=== PATIENT | female | born 1955 | race Caucasian/White ===

== ENCOUNTER 2021-06-05 10:15 | Outpatient (REF) | payer OTHER, SELFPAY ==
[2021-06-05 12:16] LABS: Erythrocyte Sedimentation Rate 25 MM/HR (0-20)
[2021-06-05 12:21] LABS: Syphilis Screen Nonreactive (Nonreactive)
[2021-06-05 12:31] LABS: Folate 11.9 ng/mL (> or = 4.0); Vitamin B12 431 pg/mL (200-900)
[2021-06-07 05:11] LABS: Lyme Abs Screen <0.90 index
[2021-06-07 12:36] LABS: Anti Nuclear Antibody Screen NEGATIVE (NEGATIVE)
== END 2021-06-05 10:16 | disposition home or self-care (01) ==
LOC: HO.LAB 10:15
PROVIDERS: PCP Internal Medicine; Visit Provider Psychiatry & Neurology Neurology
DX: G62.9 Polyneuropathy, unspecified (principal)
CPT/HCPCS: 82607; 82746; 85652; 86038; 86039; 86335; 86617; 86618; 86780

== ENCOUNTER 2021-12-18 10:30 | Outpatient (REF) | payer OTHER, SELFPAY ==
[2021-12-18 12:26] LABS: Erythrocyte Sedimentation Rate 17 MM/HR (0-20)
== END 2021-12-18 10:31 | disposition home or self-care (01) ==
LOC: HO.LAB 10:30
PROVIDERS: PCP Internal Medicine; Visit Provider Psychiatry & Neurology Neurology
DX: G62.9 Polyneuropathy, unspecified (principal)
CPT/HCPCS: 36415; 82550; 85652

== ENCOUNTER 2022-05-07 17:40 | Outpatient (REF) | payer OTHER, SELFPAY ==
--- NOTE | ~2022-05-07 | MR_ITS ---
EXAMINATION: MR BRAIN WITHOUT CONTRAST CLINICAL INFORMATION: White matter changes. COMPARISON: Brain MRI from 01/12/2018. TECHNIQUE: MRI of the brain was obtained using routine sequences without contrast. FINDINGS: No focal restricted diffusion is demonstrated to suggest acute or subacute cerebral ischemia. No evidence of acute or chronic hemorrhagic products on heme-sensitive imaging. Moderate nonspecific scattered periventricular, deep white matter, and brainstem T2 FLAIR hyperintensities (similar in distribution and degree compared to 2018). Proportional prominence of the ventricles and sulcal spaces without evidence of obstructive hydrocephalus. No abnormal mass effect. No midline shift. Normal appearance of the pituitary gland. Normal positioning of the cerebellar tonsils. Normal arterial and venous vascular flow voids are present. Normal, homogeneous marrow signal. Mild mucosal thickening of the paranasal sinuses. Moderate leftward nasal septal deviation. No signal abnormalities within the mastoids. MR/MR head/brain wo con IMPRESSION: 1. No acute intracranial abnormalities. 2. Moderate nonspecific white matter changes appear similar in distribution and degree compared to 2018.
== END 2022-05-07 17:41 | disposition home or self-care (01) ==
LOC: HO.MRI 17:40
PROVIDERS: Visit Provider Psychiatry & Neurology Neurology
DX: G93.49 Other encephalopathy (principal)
CPT/HCPCS: 70551

== ENCOUNTER 2025-01-09 14:34 | Outpatient (AMB) | payer MEDICARE, SELFPAY ==
--- OUTSIDE RECORDS SUMMARY | 2024-08-12 06:30 | XMS_ITS ---
Author Organization [facility], [place] Address [address] [place] [address] Care Team Providers Care Cupola Charger Name Role Phone Lukas Bhatt Unavailable [phone] REASON FOR VISIT Follow-up Appt Encounters Encounter Location Date Provider Diagnosis [facility], [address] [place] [phone] 08/12/2024 Lukas Bhatt Plan Of Treatment Next Appt Details Provider Name:Clare Oates, 01/30/2025 01:30:00 PM, [address] [place] [address], [address], [place], [address], [phone] Progress Notes * ELISEO NAJERADOB:[birth year] (69 yo F)Acc No.[id number]:08/12/2024 Progress Notes Patient: ELISEO MOREL Provider: Kian COSME :1955 A ge:68 Y S ex:Female Date:08/12/2024 [id number] Subjective: * Chief Complaints: * F ollow-up Appt * Ocular Surgical History: Objective: Vision Examination: * Electronic signature of Agustin Bhatt PA-C on 01/09/2025 at 04:16 PM EDT Sign off status: Pending * Provider: Kian COSME Date: 08/12/2024 Generated for Printi ng/Faxing/eTransmitting on: 0 01/09/2025 04:16 PM EDT
--- OUTSIDE RECORDS SUMMARY | 2024-09-30 09:00 | XMS_ITS ---
Author Organization [facility], [place] Address [address] [address] [place] [address] Care Team Providers Care Harpoon Engagement Planning Operator Name Role Phone Lukas Bhatt Unavailable [phone] REASON FOR VISIT Follow-up Appt Encounters Encounter Location Date Provider Diagnosis [facility], [address] [place] [address] 09/30/2024 Lukas Bhatt Plan Of Treatment Next Appt Details Provider Name:Clare Oates, 01/30/2025 01:30:00 PM, [address] [place] [address], [address], [place], [address], [phone] Progress Notes * ELISEO NAJERADOB:[birth year] (69 yo F)Acc No.[id number]:09/30/2024 Progress Notes Patient: ELISEO MOREL Provider: Kian COSME :1955 A ge:68 Y S ex:Female Date:09/30/2024 [facility] Subjective: * Chief Complaints: * F ollow-up Appt * Ocular Surgical History: Objective: Vision Examination: * Electronic signature of Agustin Bhatt PA-C on 01/09/2025 at 04:16 PM EDT Sign off status: Pending * Provider: Kian COSME Date: 0 09/30/2024 Generated for Printi ng/Faxing/eTransmitting on: 0 01/09/2025 04:16 PM EDT
--- OUTSIDE RECORDS SUMMARY | 2024-11-28 12:30 | XMS_ITS ---
Author Organization [facility], [place] Address [address] [place] [address] Care Team Providers Care Social Media Strategist Name Role Phone Clare Oates Unavailable [phone] REASON FOR VISIT Tele visit medication management Medications Medication SIG (Take, Route, Frequency, Duration) Notes Start Date End Date Status Omeprazole 20 MG Capsule Delayed Release TAKE 1 CAPSULE BY MOUTH DAILY; Duration: 90 Active Encounters Encounter Location Date Provider Diagnosis [facility], [address] [place] [phone] 11/28/2024 Clare Oates Plan Of Treatment Next Appt Details Provider Name:Clare Oates, 01/30/2025 01:30:00 PM, [address] [place] [address], [address] [facility], [place], [address], [phone] Progress Notes * ELISEO NAJERADOB:[birth year] (69 yo F)Acc No.[id number]:11/28/2024 Patient: ELISEO MOREL Provider: Jory Oates :1955 A ge:68 Y S ex:Female Date:11/28/2024 [facility] Subjective: * Chief Complaints: * T anna visit medication management * Medications: T akingOmeprazole 20 MG Capsule Delayed Release TAKE 1 CAPSULE BY MOUTH DAILY Taking Omeprazole 20 MG Capsule Delayed Release TAKE 1 CAPSULE BY MOUTH DAILY * Electronic signature of Angelito Иван on 01/09/2025 at 04:16 PM EDT Sign off status: Pending * Provider: Jory Oates Date: 0 11/28/2024 Generated for Bridget osorio/Jacque/Safia on: 0 01/09/2025 04:16 PM EDT
--- NOTE | 2025-01-09 14:43 | A.OFFVIS_ITS ---
Intake Visit Reasons: 6m Tarsal Tunnel Syndrome Allergies Penicillins Allergy (Unknown, Verified 01/02/25 09:30) Unknown HPI Comments Details: 69 yo woman with HTN, abnromal MRI brain in 2018 revealing white matter lesions (?MVD vs demylination). 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 She is presenting with the need for management of diarrhea and the evaluation of restarting Duloxetine. The patient recounts that following commencement of Duloxetine for pain relief, she experienced worsening diarrhea during a trip in November, which led to the discontinuation of the medication after consulting with her primary care provider. She observed an improvement in her symptoms approximately one week after stopping Duloxetine. The patient inquired about alternatives to manage diarrhea, should she resume taking Duloxetine since it was effective for her pain. She tried Imodium during a previous hospital visit, as well as dicyclomine, a medication she had used for her past diagnosis of IBS, but which she currently does not take as IBS was ruled out. She mentioned her concern over weight changes possibly related to the medication. [facility] Medical History (Updated 01/09/25 @ 14:45 by Mark Zamora MD) Multifactorial gait disorder White matter disease Cerebral microvascular disease Facet arthropathy Degenerative disc disease, lumbar Obesity Peripheral neuropathy Tarsal tunnel syndrome, bilateral Review of Systems Const Details: - Gastrointestinal: Reports diarrhea associated with Duloxetine use; Denies current IBS symptoms - Weight: Reports initial weight loss during diarrhea episode; subsequent weight gain after Duloxetine discontinuation - Musculoskeletal: Reports effective pain relief from Duloxetine; no other current symptoms reported Physical Exam Neuro Other: Mental Status: Alert and oriented to person, place, and time. Normal attention. Normal sponta neous speech, fluency, and comprehension. No obvious issues with mood and memory. Affect is appropriate. Cranial Nerves: CN II: Visual badillo full to confrontation, visual acuity intact. CN III, IV, : Pupils equal, round, reactive to light and accommodation. Extraocular movements are normal. CN V: Facial sensation is normal. CN VII: Facial movements symmetrical. CN VIII: Hearing intact to bedside conversation is normal. CN IX, X: Palate elevates symmetrically. CN XI: Shoulder shrug and head turn symmetrical. CN XII: Tongue midline without atrophy or fasciculations. Extrapyramidal: Full facial expressions and blinking. No rigidity. Movements are appropriate with no tremor or abnormality. Speech: Normal; no dysarthria or tremor. Assessment & Plan Assessment & Plan (1) Neuropathic pain: Comment: NCV/EMG LE in off in Feb 2024: Mild axonal sensory and motor peripheral neuropathy. NCV/EMG RTLE No significant abnormality noted in this study. 01/01/22. EMG/NCS UEs at [facility] in Feb 2021: mild b/l median neuropathy across CT, mild bilateral ulnar neuropathy across elbow (my interpretation of his data) EMG/NCS R LE at [facility] in Feb 2021: mild axonal SM PN (my interpretation of his data) EMG/NCS at [facility] in Jan 2021: chronic b/l lower lumbar radiculopathy, mild axonal SM PN, b/l distal tibial neuropathy XR LS spine at [facility] in 2019: DJD, L 4/5 facet arthropathy MRI brain WO at [facility] in 2018: mod b/l WM lesions, ?ischemic, ?demyelinating. Code(s): M79.2 - Neuralgia and neuritis, unspecified Category: Medical Plan Impression: Neuropathic pain with underlying IBS Rec: a: Continue duloxetine 20mg bid, it is helping with pain b: May take dicyclomine for IBS Coding Level of Care Code Est Pt Level 4 (51489) Diagnoses Neuropathic pain M79.2
--- OUTSIDE RECORDS SUMMARY | 2025-01-09 16:16 | XMS_ITS | Patient Health Record ---
Author Organization [facility], [place] Address [address] [place] [address] Care Team Providers Care Fiber Optics Supervisor Name Role Phone Lukas Bhatt Unavailable [phone] Migration, Provider Unavailable Unavailable Clare Oates Unavailable [phone] Reason For Referral No Information Medications Medication SIG (Take, Route, Frequency, Duration) Notes Start Date End Date Status Omeprazole 20 MG Capsule Delayed Release TAKE 1 CAPSULE BY MOUTH DAILY; Duration: 90 Active Encounters Encounter Location Date Provider Diagnosis [facility], [address] [address] 01/11/2024 Provider Migration [facility], [address] [address] 01/25/2024 Provider Migration [facility], [address] [address] 02/29/2024 Provider Migration [facility], [address] [address] 03/07/2024 Provider Migration [facility], [address] [address] 04/12/2024 Provider Migration [facility], [address] [address] 05/19/2024 Lukas Bhatt [facility], [address] [address] 07/07/2024 Provider Migration [facility], [address] [address] 07/07/2024 Lukas Bhatt [facility] [place] [address] [address] 08/12/2024 Lukas Bhatt [facility], [address] [address] 09/30/2024 Lukas Bhatt [facility] [place] [address] [place] [address] 11/28/2024 Clare Oates Plan Of Treatment Next Appt Details Provider Name:Clare Oates, 01/30/2025 01:30:00 PM, [address], [address], [place], [address], [phone] Insurance Providers Payer Name Payer Address Payer Phone Subscriber Number Group Number Insured Name Patient Relationship to Insured Coverage Start Date Coverage End Date [facility] [address] [place] [id number] ELISEO NAJERA Self - patient is the insured
--- OUTSIDE RECORDS SUMMARY | 2025-01-09 16:16 | XMS_ITS ---
Author Name [facility] Organization Unknown Problems Problem Status Onset Date Problem Type Date of Resolution Source Encounter for screening mammogram for breast cancer active EncounterDiagnosisAct CT_TH SFRAN Encounters Encounter Type Encounter Reason Primary Diagnosis Location Date Inpatient Unspecified atrial fibrillation Unspecified atrial fibrillation [facility] 02/26/2023 Care Team Organization Name Specialty Phone Email Start Date End Da te [facility] 3 08/23/2024 [facility]
--- OUTSIDE RECORDS SUMMARY | 2025-01-09 16:16 | XMS_ITS | Clinical Summary ---
Author Organization [facility] Address [address] [place] [address] Care Team Providers Care Stage Builder Name Role Phone Verónica Person NP Primary Care Provider [phone] Allergies Active Allergy Reactions Criticality Noted Date Comments Penicillins Swelling 02/12/2023 Tongue and throat swelling Medications Medication Sig Dispensed Refills Start Date End Date Status amLODIPine (NORVASC) tablet 5 mg Take 1 tablet (5 mg total) by mouth daily. 0 Active metoprolol succinate (TOPROL-XL) 24 hr tablet 50 mg Take 1.5 tablets (75 mg total) by mouth daily. 0 Active omeprazole (PriLOSEC) 20 MG capsule Take 1 capsule (20 mg total) by mouth daily. 0 Active Albuterol Sulfate (PROAIR HFA IN) Inhale into the lungs as needed. 0 Active montelukast (SINGULAIR) 10 MG tablet Take 1 tablet (10 mg total) by mouth every night at bedtime. 0 Active cetirizine (ZyrTEC) 10 MG tablet Take 1 tablet (10 mg total) by mouth daily. Take one tablet once a day 0 Active aspirin EC 81 MG EC tablet Take 1 tablet (81 mg total) by mouth daily. 30 tablet 1 02/27/2023 Active clopidogrel (PLAVIX) 75 MG tablet Take 1 tablet (75 mg total) by mouth daily. 30 tablet 1 02/27/2023 Active Active Problems Problem Noted Date Diagnosed Date Longstanding persistent atrial fibrillation 02/15 Atrial fibrillation 02/26/2023 Social History Tobacco Use Types Packs/Day Years Used Date Smoking Tobacco: Former Cigarettes Smokeless Tobacco: Never Tobacco Cessation:Counseling Given: Not Answered Alcohol Use Standard Drinks/Week Comments Yes 0 (1 standard drink = 0.6 oz pur e alcohol) Sex and Gender Information Value Date Recorded Sex Assigned at Female 01/28/2023 11:11 AM EDT Gender Identity Not on file Sexual Orientation Not on file Job Start Date Occupation Industry Not on file Not on file Not on file Last Filed Vital Signs Vital Sign Reading Time Taken Comments Blood Pressure 121/71 02/27/2023 12:50 PM EDT Pulse 79 02/27/2023 12:50 PM EDT Temperature 36.8 C (98.3 F) 02/27/2023 12:50 PM EDT Respiratory Rate 18 02/27/2023 12:50 PM EDT Oxygen Saturation 95% 02/27/2023 12:50 PM EDT Inhaled Oxygen Concentration - - Weight 85.3 kg (188 lb 1 oz) 02/26/2023 9:56 AM EDT Height 160 cm (5' 3 ) 02/26/2023 9:56 AM EDT Body Mass Index 33.31 02/26/2023 9:56 AM EDT Plan of Treatment Health Maintenance Due Date Last Done Comments Hepatitis C Screening 1955 COVID-19 Vaccine (#1) 06/12/1958 Depression Screening 1969 BMI Counseling 12/11/1975 Preventative Health Evaluation 12/11/1975 DTap / Tdap / Td (1 - Tdap) 1976 Colon Cancer Screening (Colonoscopy) 2002 Breast Cancer Screening (Mammogram) 12/11/2007 Shingrix-Zoster Vaccine (1 of 2) 12/11/2007 Fall Risk Assessment 2022 Osteoporosis Screening (DEXA Scan) 2022 Pneumococcal Vaccine (2 of 2 - PCV) 2022 08/12/2013 Influenza Vaccine (#1) 2025 RSV Adult > 60+ Yrs or Pregn ant (1 - 1-dose 75+ series) 2032 Hepatitis B Vaccines Aged Out No long er eligible based on patient's age to complete this topic RSV Ped < 20 months Aged Out No longe r eligible based on patient's age to complete this topic Medical Devices Implanted Type Area Pierce And Shave Press Operator Device Identifier Shelf Expiration Date Model / Serial / Lot Device Clsdamien Watchman Flx Lakshmi 24mm Bsci-Prnt [id number] - [id number] Implanted:Qty: 1 on 02/26/2023 by Arun Roberson MD at [facility] Right: Lindsay Signpost 09/22/2024 [id number] / [id number] / Advance Directives For more information, please contact: [phone] Latest Code Status on File Code Status Date Activated Date Inactivated Comments Full Code 02/26/2023 11:46 AM 02/27/2023 8:20 PM Th is code status was ascertained in the following way: discussion with patient . Care Teams Stage Builder Relationship Specialty Start Date End Date Verónica Person NP [address] [facility] [place] [address] PCP - General Family Medicine 02/13/23
--- OUTSIDE RECORDS SUMMARY | 2025-01-09 16:16 | XMS_ITS | Clinical Summary ---
Author Organization [facility] Address [address] [place] [address] Phone Care Team Providers [employer] Name Role Phone Satinder Bateman MD Primary Care Provider [phone] Allergies Active Allergy Reactions Criticality Noted Date Comments Clopidogrel Other 05/27/2023 Malaise Penicillins Rash 09/12/2024 Medications dicyclomine (BENTYL) 10 mg capsuleIndicati ons:Lower abdominal pain Take 1 capsule (10 mg total) by mouth 3 (three) times a day before meals. 90 each 11 5 10/06/19 26 Active Additional Information Patient not taking.Reported on 12/14/2024 albuterol HFA (PROAIR HFA ; PROVENTIL HFA ; VENTOLIN HFA) 90 mcg/actuation inhaler USE 2 INHALATIONS BY MOUTH EVERY 4 HOURS NEEDED FOR SHORTNESS OF BREATH 3 Active amLODIPine (NORVASC) 5 mg tablet Take 1 tablet (5 mg total) by mouth 1 (one) time each day. 4 Active apixaban (Eliquis) 5 mg tablet Take 1 tablet (5 mg total) by mouth 2 (two) times a day. 3 Active aspirin 81 mg EC tablet Take 1 tablet (81 mg total) by mouth 1 (one) time each day. 3 Active cetirizine (ZyrTEC) 10 mg chewable tablet Chew 1 tablet (10 mg total) 1 (one) time each day. 3 Active cyclobenzaprine (FLEXERIL) 10 mg tablet TAKE 1 TABLET BY MOUTH 3 TIMES A DAY NEEDED FOR PAIN. MAY CAUSE DROWSINESS.DON'T DRIVE 5 Active ciprofloxacin (CIPRO) 500 mg tablet Take 1 tablet (500 mg total) by mouth 2 (two) times a day. for 7 days 5 Active DULoxetine (CYMBALTA) [address] capsule Take 1 capsule (20 mg total) by mouth 2 (two) times a day. 4 Active metoprolol tartrate (LOPRESSOR) 50 mg tablet 5 Active pravastatin (PRAVACHOL) 20 mg tablet 5 Active rosuvastatin (CRESTOR) 10 mg tablet Take 1 tablet (10 mg total) by mouth every other day. 4 Active omeprazole (PriLOSEC) [address] capsule Take 1 capsule (20 mg total) by mouth 1 (one) time each day. 4 Active montelukast (SINGULAIR) 10 mg tablet Take 1 tablet (10 mg total) by mouth. 4 Active metroNIDAZOLE (FLAGYL) 500 mg tablet Take 1 tablet (500 mg total) by mouth 2 (two) times a day. for 7 days 5 Active metoprolol succinate (TOPROL-XL) 50 mg 24 hr tablet Take 1.5 tablets (75 mg total) by mouth. 3 Active Active Problems Problem Noted Date Diagnosed Date Lung cancer ([facility] V24, [facility] V28) 5 Complex regional pain syndrome I 11/17/2024 History of pacemaker 05/26/2023 Subarachnoid hemorrhage ([facility] V24, [facility] V2 8) 05/26/2023 Longstanding persistent atri al fibrillation ([facility] V24, [facility] V28) 02/26/2023 Other chest pain 01/20/2023 Overview (11/17/2024): Last Assessment & Plan: As a note she did have this episode of chest discomfort her resting ECG is abnormal. I am going to schedule for a nuclear stress test. In the meantime I did tell her she had any chest discomfort that lasted over 15 minutes to call 911. Snoring 01/20/2023 Overview (11/17/2024): Last Assessment & Plan: She does snore and she could have sleep apnea and I spoke to her about this and she is agreeable to a sleep test. Arrhythmia 01/16/2023 Overview (11/17/2024): Last Assessment & Plan: 67-year-old female with persistent atrial fibrillation treated with rate control. 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 CHADSVASC score is a 3 and she is a candidate for watchman. I went through the procedure, its rationale, potential complications and need for monitoring with transesophageal echocardiogram post procedure. She understands that she would need to be on dual antiplatelet therapy for period of up to 6 months. I did discuss the small risk of venous access complications, cardiac perforation tamponade, device embolization and potential need for open cardiac rescue showed to be a perforation. She understands that there are needs to be a transesophageal echocardiogram at the time of the procedure and 6 weeks after to assess for leaks and device stability and rule out device related thrombus. She is in agreement to proceed. Atrial fibrillation (CMS/HCC V24, CMS/HCC V28) 0 01/16/2023 Overview (11/17/2024): Last Assessment & Plan: As a noted this patient does have atrial fibrillation. This was first noted in September 2022. She had not seen a physician 2020. Therefore we do not know when the atrial fibrillation started. She is completely asymptomatic. At this time she is having no symptoms. As far as an etiology she did have an echocardiogram in 2022. This demonstrated that the left ventricular chamber size and function were normal. The LVEF was 55 to 60%. The left and right atrium mildly dilated. There was mild mitral regurgitation mild to moderate tricuspid regurgitation with estimated PA pressure 38 mmHg. She does snore and she could also have sleep apnea as a contributing factor. At this time the rate is controlled. At this point given the fact that she is completely asymptomatic we do not know when this Started I do not see an indication for a cardioversion. I did discuss some, but all possible risk of atrial fibrillation including an embolic event which could lead to a stroke. Her CHADS2 vascular score is 3. Ideally I think she should be on anticoagulation because of this however as I know she does have multiple falls. I have asked her where she thought risk and she says she does not know if she would fall the next 5 minutes to an hour. As such I get concerned about given her anticoagulation because of this. However I also do not want her to have an embolic event I spoke to her about a Watchman procedure. I did give her a pamphlet and she is agreeable to this. I am going to see if we can get her a appointment with one of the systems integration engineer. Allergic rhinitis 09/15/2017 Hyperlipidemia 09/15/2017 Hypertension 09/15/2017 Asthma 09/23/2016 Encounters Date Type Department Care Team Description 12/14/2024 11:00 AM EDT Office Visit Gastroenterology - [address] [facility] [address] [place] [phone] Jeimy Stewart PA Irritable bowel syndrome without diarrhea (Primary Dx) from Last 3 Months Surgical History Surgery Date Site/Laterality Comments COLONOSCOPY 11/10/2023 COLONOSCOPY 11/22/2019 FLEXIBLE SIGMOIDOSCOPY 12/24/2021 COLONOSCOPY 10/15/2016 SS x 3 LUNG REMOVAL, PARTIAL Right TOTAL ABDOMINAL HYSTERECTOMY W/ BILATERAL SALPINGOOPHORECTOMY ESOPHAGOGASTRODUODENOSCOPY 01/21/2018 COLONOSCOPY 07/04/2011 TA x 1 Medical History Medical History Date Comments Hyperlipidemia 09/15/2017 DX:Hyperlipidemi a Asthma 09/23/2016 DX:Asthma History of lung cancer 09/15/2017 DX:Histor y of lung cancer Allergic rhinitis 09/15/2017 DX:Allergic rh initis Hypertension 09/15/2017 DX:Hypertension Colon polyp Diverticulitis Family History Medical History Relation Name Comments Breast cancer Cousin Coronary artery disease Father diab etes, HTN, stroke Stroke Father COPD Mother lung cancer Lung cancer Mother Coronary artery disease Sister diab etes Colon cancer Neg Hx Colon polyps Neg Hx Relation Name Status Comments Cousin Alive Father Mother Sister Social History Tobacco Use Types Packs/Day Years Used Date Smoking Tobacco: Former Cigarettes Smokeless Tobacco: Former Quit: 05/18/1995 Alcohol Use Standard Drinks/Week Comments Yes 0 (1 standard drink = 0.6 oz pur e alcohol) rare Comments No Sex and Gender Information Value Date Recorded Sex Assigned at Female 04/29/2024 7:28 PM EST Legal Sex Female 4:14 AM EST Gender Identity Female 04/29/2024 7:28 PM EST Sexual Orientation Not on file Obstetrics History Last Filed Vital Signs Vital Sign Reading Time Taken Comments Blood Pressure 131/74 09/12/2024 11:14 PM EDT Pulse 60 09/12/2024 11:14 PM EDT Temperature 36.7 C (98 F) 09/12/2024 11:14 PM EDT Respiratory Rate 16 09/12/2024 11:14 PM EDT Oxygen Saturation 98% 09/12/2024 11:14 PM EDT Inhaled Oxygen Concentration - - Weight 85.7 kg (189 lb) 12/14/2024 11:00 AM EDT Height 160 cm (5' 3 ) 12/14/2024 11:00 AM EDT Body Mass Index 33.48 12/14/2024 11:00 AM EDT Plan of Treatment Health Maintenance Due Date Last Done Comments DTaP,Tdap,and Td Vaccines (1 - Tdap) 1974 Pneumococcal Vaccine: 50+ Years (1 of 2 - PCV) 1974 Colorectal Cancer Screening: Colonoscopy 04/20/2022 Hepatitis C Screening 04/20/2022 Medicare Annual Wellness Visit 04/20/2022 Social Influencers of Health Screening 04/20/2022 Falls Risk Assessment 2022 Depression Screening 05/18/2024 COVID-19 Vaccine (8 - Mixed Product risk season) 2024 03/15/2024, 05/02/2023, 03/14/2022, Additional history exists Influenza Vaccine (#1) 2025 , 05/02/2023, 03/14/2022, Additional history exists Hypertension/CHF/CAD Annual BMP Blood Test 09/12/2025 09/12/2024, 05/19/2024 Breast Cancer Screening 05/02/2026 05/02/20 24, 04/30/2023, 04/17/2022, Additional history exists Cholesterol Screening (Lipid Panel) 05/19/2029 05/19/2024 Osteoporosis Screening (Bone Density Screening) 04/30/2033 04/30/2023 RSV Immunization Adult Patients Completed 05/09/2023 Zoster Vaccines Completed 06/06/2023, 03/08/2021 HIB Vaccines Aged Out No longer eligi ble based on patient's age to complete this topic HPV Vaccines Aged Out No longer eligi ble based on patient's age to complete this topic Hepatitis A Vaccines Aged Out No long er eligible based on patient's age to complete this topic Hepatitis B Vaccines Aged Out No long er eligible based on patient's age to complete this topic IPV Vaccines Aged Out No longer eligi ble based on patient's age to complete this topic MMR Vaccines Aged Out No longer eligi ble based on patient's age to complete this topic Meningococcal ACWY Vaccine Aged Out N o longer eligible based on patient's age to complete this topic Meningococcal B Vaccine Aged Out No l onger eligible based on patient's age to complete this topic RSV Immunization Patients Under 20 months Aged Out No longer eligible based on patient's age to complete this topic Varicella Vaccines Aged Out No longer eligible based on patient's age to complete this topic Medical Devices Implanted Type [employer] Device Identifier Shelf Expiration Date Model / Serial / Lot Device Clsur Watchman Flx Lakshmi 24mm Bsci-Prnt [id number] - [id number] Implanted:Qty: 1 on 02/26/2023 by Arun Roberson MD Right: [email or web address] 09/22/2024 [id number] / [id number] / Procedures Procedure Name Priority Date/Time Associated Diagnosis Comments COMPREHENSIVE METABOLIC PANEL STAT 09/12/2024 7:30 PM EDT LIPID PANEL WITH REFLEX TO DIRECT LDL Routine 05/19/2024 12:00 AM EST Vitamin D deficiency, unspecified Essential (primary) hypertension Hyperlipidemia, unspecified Encounter for screening for diabetes mellitus MG MAMMO DIGITAL SCREENING W OLVIN BILAT Routine 05/02/2024 11:23 AM EST Encounter for screening mammogram for breast cancer PREMA DEXA AXIAL SKELETON Routine 04/30/2023 7:46 AM EST Other specified disorders of bone density and structure, other site from Last 3 Months or Most Recently Relevant to Health Maintenance Results * Comprehensive metabolic panel (09/12/2024 7:30 PM EDT) Sodium 138 133 - 145 mmol/L LAB CHEMISTRY METHOD 09/12/2024 8:[address] [facility] Potassium 3.7 3.5 - 5.5 mmol/L LAB CHEMISTRY METHOD 09/12/2024 8:[address] [facility] Chloride 106 96 - 110 mmol/L LAB CHEMISTRY METHOD 09/12/2024 8:[address] [facility] CO2 26 21 - 32 mmol/L LAB CHEMISTRY METHOD 09/12/2024 8:[address] [facility] Anion Gap 6 3 - 11 LAB CHEMISTRY METHOD 09/12/2024 8:[address] [facility] Glucose 95 70 - 100 mg/dL LAB CHEMISTRY METHOD 09/12/2024 8:[address] [facility] BUN 13 5 - 25 mg/dL LAB CHEMISTRY METHOD 09/12/2024 8:[address] [facility] Creatinine 0.84 0.50 - 1.10 mg/dL LAB CHEMISTRY METHOD 09/12/2024 8:[address] [facility] eGFR 77 >=60 mL/min/1. 73m2 LAB CHEMISTRY METHOD 09/12/2024 8:[address] [facility] Comment:Calculation based on the Chronic Kidney Disease Epidemiology Collaboration (CKD-EPI) equation refit without adjustment for race. BUN/Creatinine Ratio 15.5 LAB CHEMISTRY METHOD 09/12/2024 8:[address] [facility] Calcium 9.0 8.5 - 10.5 mg/dL LAB CHEMISTRY METHOD 09/12/2024 8:[address] [facility] AST (SGOT) 17 10 - 42 unit/L LAB CHEMISTRY METHOD 09/12/2024 8:[address] [facility] ALT (SGPT) 24 10 - 60 unit/L LAB CHEMISTRY METHOD 09/12/2024 8:[address] [facility] Alkaline Phosphatase 90 42 - 121 unit/L LAB CHEMISTRY METHOD 09/12/2024 8:37 PM EDT [facility] Total Protein 6.8 6.0 - 8.0 g/dL LAB CHEMISTRY METHOD 09/12/2024 8:37 PM EDT [facility] Albumin 3.6 3.2 - 5.0 g/dL LAB CHEMISTRY METHOD 09/12/2024 8:37 PM EDT [facility] Total Bilirubin 0.6 0.0 - 1.4 mg/dL LAB CHEMISTRY METHOD 09/12/2024 8:37 PM EDT [facility] Blood Venous blood specimen / Unknown Venipuncture / Unknown 09/12/2024 7:30 PM EDT 09/12/2024 7:56 PM EDT Chris Batista MD LAB BLOOD ORDERABLES Final Result [facility] [address] [place] [address], [place] [phone] * (ABNORMAL) Lipid panel with reflex to direct LDL (05/19/2024 12:00 AM EST) Cholesterol 247(H) 0 - 200 mg/dL LAB CHEMISTRY METHOD 05/19/2024 8:35 PM EST [facility] Triglycerides 326(H) 0 - 150 mg/dL LAB CHEMISTRY METHOD 05/19/2024 8:35 PM EST [facility] HDL 48 >=40 mg/dL LAB CHEMISTRY METHOD 05/19/2024 8:35 PM EST [facility] LDL Calculated 134(H) 0 - 100 mg/dL LAB CHEMISTRY METHOD 05/19/2024 8:35 PM EST [facility] VLDL Cholesterol [place] 65.2 mg/dL LAB CHEMISTRY METHOD 05/19/2024 8:35 PM EST [facility] Non HDL Chol. (LDL+VLDL) 199(H) <145 mg/dL LAB CHEMISTRY METHOD 05/19/2024 8:35 PM EST [facility] Chol/HDL Ratio 5.1(H) 0.0 - 4.4 LAB CHEMISTRY METHOD 05/19/2024 8:35 PM EST [facility] Blood Venous blood specimen / Unknown 05/19/2024 05/19/2024 6:35 PM EST us Lukas COSME LAB BLOOD ORDERABLES Final Res ult [facility] [address] [place] [address], [place] [phone] * MG Mammo Digital Screening w Olvin bilat (05/02/2024 11:23 AM EST) Anatomical Region Laterality Modality Breast Bilateral Mammography 05/04/2024 12:1 3 PM EST Impressions 05/04/2024 12:16 PM EST Benign. BI-RADS CATEGORY: 1 - NEGATIVE RECOMMENDATION: Screening bilateral mammogram is recommended in 1 year. Mammo Location: [facility], [address] [place], [place], [address], . -------- FINAL REPORT -------- Dictated By: BOGDAN GARRISON Dictated Date: 05/04/2024 12:13 ET Assigned Physician: BOGDAN GARRISON Reviewed and Electronically Signed By: BOGDAN GARRISON Signed Date: 05/04/2024 12:16 ET Workstation ID: [id number] Transcribed By: Self Edit Transcribed Date: 05/04/2024 12:13 ET Narrative 05/04/2024 12:16 PM EST CLINICAL: 68 years old, Female, routine annual exam. COMPARISON: 04/29/2023 through 03/20/2020 TECHNIQUE: Bilateral MLO and CC views were obtained digitally with 3-D mammogram (digital breast tomosynthesis). Computer-aided detection was utilized in evaluation of this exam (CAD). FINDINGS: There is no evidence of suspicious mass or architectural distortion. No worrisome calcifications are evident. There has been no significant change from prior exam(s). BREAST DENSITY: B - There are scattered areas of fibroglandular density. Procedure Note Bogdan Garrison MD - 05/04/2024 CLINICAL: 68 years old, Female, routine annual exam. COMPARISON: 04/29/2023 through 03/20/2020 TECHNIQUE: Bilateral MLO and CC views were obtained digitally with 3-Dmammogram (digital breast tomosynthesis). Computer-aided detection wasutilized in evaluation of this exam (CAD). FINDINGS: There is no evidence of suspicious mass or architectural distortion. Noworrisome calcifications are evident. There has been no significantchange from prior exam(s). BREAST DENSITY: B - There are scattered areas of fibroglandular density. IMPRESSION: Benign. BI-RADS CATEGORY: 1 - NEGATIVE RECOMMENDATION: Screening bilateral mammogram is recommended in 1 year. Mammo Location: [facility], [address] [place] [address], [address], . -------- FINAL REPORT -------- Dictated By: BOGDAN GARRISON Dictated Date: 05/04/2024 12:13 ET Assigned Physician: BOGDAN GARRISON Reviewed and Electronically Signed By: BOGDAN GARRISON Signed Date: 05/04/2024 12:16 ET Workstation ID: [id number] Transcribed By: Self Edit Transcribed Date: 05/04/2024 12:13 ET us Self Referral Sppl IMG BI PROCEDURES Final Resul t * PREMA DEXA AXIAL SKELETON (04/30/2023 7:46 AM EST) Anatomical Region Laterality Modality Mammography 04/29/2023 2:01 PM EST Narrative 04/30/2023 7:46 AM EST Diagnostic Imaging Department [address] [place] [address] Patient: ELISEO CASTILLO /Age/Sex: 1955 - 67 - F Unit#: [id number] Location/Status: SPDIMAM/REG CLI Mnemonic/Ordering Site: [facility] Ordering Physician: OWEN BREAUX APRN Prema Dexa Axial Skeleton - 04/29/23 - [id number] Report Status:Signed HISTORY: The patient is a 67-year-old postmenopausal female with clinical concern for metabolic bone disease. FINDINGS: Dual energy x-ray absorptiometry of the lumbar spine and femurs is performed. The mean bone mineral density at L1-L4 is 1.258 gm/cm2 which is 107% of that of young normals and 118% of that of age matched controls. This yields a T-score of 0.6 and a Z-score of 1.6 and there is therefore no evidence of osteoporosis or osteopenia here. The mean bone mineral density of the femurs bilaterally is 0.979 gm/cm2 which is 97% of that of young normals and 108% of that of age matched controls. This yields a T-score of -0.2 and a Z-score of 0.5 and there is therefore no evidence of osteoporosis or osteopenia here. However, the T-score of the right femoral neck is -1.4 which is diagnostic of osteopenia. IMPRESSION: 1. Osteopenia. 2. FRAX analysis yields a 10-year probability of major osteoporotic fracture of 21.3% and a 10-year probability of hip fracture of 2.5%. Code 05530 Dictating Physician: JACKIE ISAAC MD Electronically Signed by: JACKIE ISAAC MD Dic Date/Time: 04/30/2345 Sign date/Time: 04/30/23745 Procedure Note Jackie Isaac MD - 06/23/2023 Diagnostic Imaging Department [address] [place] [address] [id number] Patient: ELISEO CASTILLO /Age/Sex: 1955 - 67 - F Unit#: [id number] Location/Status: SPDIMAM/REG CLI Mnemonic[facility] Ordering Physician: OWEN BREAUX APRN Prema Dexa Axial Skeleton - 04/29/23 - [id number] Report Status:Signed HISTORY: The patient is a 67-year-old postmenopausal female withclinical concern for metabolic bone disease. FINDINGS: Dual energy x-ray absorptiometry of the lumbar spine and femursis performed. The mean bone mineral density at L1-L4 is 1.258 gm/cm2 which is107% of that of young normals and 118% of that of age matched controls. Thisyields a T-score of 0.6 and a Z-score of 1.6 and there is therefore no evidenceof osteoporosis or osteopenia here. The mean bone mineral density of the femurs bilaterally is 0.979 gm/pr7fsmjx is 97% of that of young normals and 108% of that of age matched controls.This yields a T-score of -0.2 and a Z-score of 0.5 and there is therefore noevidence of osteoporosis or osteopenia here. However, the T-score of the rightfemoral neck is -1.4 which is diagnostic of osteopenia. IMPRESSION: 1. Osteopenia. 2. FRAX analysis yields a 10-year probability of major osteoporoticfracture of 21.3% and a 10-year probability of hip fracture of 2.5%. Code 63437 Dictating Physician: JACKIE ISAAC MD Electronically Signed by: JACKIE ISAAC MD Dic Date/Time: 04/30/2345 Sign date/Time: 04/30/23745 Verónica Person CIDER MAKER IMG BI PROCEDURES Final Result from Last 3 Months or Most Recently Relevant to Health Maintenance Insurance MEDICARE [employer] MEDICARE Care Teams Local Company Refrigerated Truck Driver Relationship Specialty Start Date End Date Satinder Bateman MD [address] [facility] [address] [place] [address] PCP - General 10/14/23
--- OUTSIDE RECORDS SUMMARY | 2025-01-09 16:17 | XMS_ITS | Encounter Summary ---
Author Organization [facility] Address [address] [place] [address] Care Team Providers Care Deputy Felony Clerk Name Role Phone Satinder Bateman MD Primary Care Provider [phone] Encounter Details Date Type Department Care Team (Late st Contact Info) Description 05/19/2024 Lab Requisition [facility] - Main Lab [address] [facility] [place] [phone] Lukas Bhatt PA [address] [facility] [address] [place], [place] [phone] Encounter for screening for diabetes mellitus; Vitamin D deficiency, unspecified; Essential (primary) hypertension; Hyperlipidemia, unspecified Social History Tobacco Use Types Packs/Day Years Used Date Smoking Tobacco: Former Cigarettes Smokeless Tobacco: Former Quit: 05/18/1995 Alcohol Use Standard Drinks/Week Comments Yes 0 (1 standard drink = 0.6 oz pur e alcohol) Comments No Sex and Gender Information Value Date Recorded Sex Assigned at Female 04/29/2024 7:28 PM EST Legal Sex Female 4:14 AM EST Gender Identity Female 04/29/2024 7:28 PM EST Sexual Orientation Not on file documented as of this encounter Plan of Treatment Not on file documented as of this encounter Procedures Procedure Name Priority Date/Time Associated Diagnosis Comments THYROID STIMULATING HORMONE WITH REFLEX TO FREE T4 AND FREE T3 Routine 05/19/2024 12:00 AM EST Vitamin D deficiency, unspecified Essential (primary) hypertension Hyperlipidemia, unspecified Encounter for screening for diabetes mellitus SST - GOLD Routine 05/19/2024 12:00 AM EST Vitamin D deficiency, unspecified Essential (primary) hypertension Hyperlipidemia, unspecified Encounter for screening for diabetes mellitus LIPID PANEL WITH REFLEX TO DIRECT LDL Routine 05/19/2024 12:00 AM EST Vitamin D deficiency, unspecified Essential (primary) hypertension Hyperlipidemia, unspecified Encounter for screening for diabetes mellitus CBC WITH AUTO DIFFERENTIAL Routine 05/19/2024 12:00 AM EST Vitamin D deficiency, unspecified Essential (primary) hypertension Hyperlipidemia, unspecified Encounter for screening for diabetes mellitus VITAMIN D 25 HYDROXY Routine 05/19/2024 12:00 AM EST Vitamin D deficiency, unspecified Essential (primary) hypertension Hyperlipidemia, unspecified Encounter for screening for diabetes mellitus CBC AND DIFFERENTIAL Routine 05/19/2024 12:00 AM EST Vitamin D deficiency, unspecified Essential (primary) hypertension Hyperlipidemia, unspecified Encounter for screening for diabetes mellitus HEMOGLOBIN A1C Routine 05/19/2024 12:00 AM EST Vitamin D deficiency, unspecified Essential (primary) hypertension Hyperlipidemia, unspecified Encounter for screening for diabetes mellitus VITAMIN B12 Routine 05/19/2024 12:00 AM EST Vitamin D deficiency, unspecified Essential (primary) hypertension Hyperlipidemia, unspecified Encounter for screening for diabetes mellitus COMPREHENSIVE METABOLIC PANEL Routine 05/19/2024 12:00 AM EST Vitamin D deficiency, unspecified Essential (primary) hypertension Encounter for screening for diabetes mellitus documented in this encounter Results * SST tube (05/19/2024 12:00 AM EST) Extra Tube Hold for add-ons. 06/08/2024 9:04 AM EST [facility] Comment:Auto resulted. Blood Venous blood specimen / Unknown 05/19/2024 05/19/2024 6:35 PM EST us Lukas COSME LAB BLOOD ORDERABLES Final Res ult [facility] [address] [place] [address], * (ABNORMAL) CBC auto differential (05/19/2024 12:00 AM EST) WBC 6.6 4.8 - 10.8 K/mcL LAB HEMETOLOGY METHOD 05/19/2024 7:01 PM [facility] RBC 4.90(H) 3.80 - 4.80 M/mcL LAB HEMETOLOGY METHOD 05/19/2024 7:01 PM [facility] Hemoglobin 14.9 11.5 - 16.0 g/dL LAB HEMETOLOGY METHOD 05/19/2024 7:01 PM [facility] Hematocrit 45.6 35.0 - 47.0 % LAB HEMETOLOGY METHOD 05/19/2024 7:01 PM [facility] MCV 93.6 79.0 - 98.0 FL LAB HEMETOLOGY METHOD 05/19/2024 7:01 PM [facility] MCH 30.6 27.0 - 32.0 pcg LAB HEMETOLOGY METHOD 05/19/2024 7:01 PM [facility] MCHC 32.7 32.0 - 37.0 g/dL LAB HEMETOLOGY METHOD 05/19/2024 7:01 PM [facility] RDW 13.0 11.0 - 15.0 % LAB HEMETOLOGY METHOD 05/19/2024 7:01 PM [facility] Platelets 305 130 - 400 K/mcL LAB HEMETOLOGY METHOD 05/19/2024 7:01 PM [facility] MPV 11.9(H) 7.0 - 11.0 FL LAB HEMETOLOGY METHOD 05/19/2024 7:01 PM [facility] NRBC 0.0 <1.0 % LAB HEMETOLOGY METHOD 05/19/2024 7:01 PM [facility] NRBC Absolute 0.00 <0.10 K/mcL LAB HEMETOLOGY METHOD 05/19/2024 7:01 PM [facility] Neutrophils Relative 56.5 % LAB HEMETOLOGY METHOD 05/19/2024 7:01 PM [facility] Lymphocytes Relative 29.7 % LAB HEMETOLOGY METHOD 05/19/2024 7:01 PM [facility] Monocytes Relative 9.8 % LAB HEMETOLOGY METHOD 05/19/2024 7:01 PM [facility] Eosinophils Relative 2.9 % LAB HEMETOLOGY METHOD 05/19/2024 7:01 PM [facility] Basophils Relative 0.8 % LAB HEMETOLOGY METHOD 05/19/2024 7:01 PM [facility] Immature Granulocytes Relative 0.3 % LAB HEMETOLOGY METHOD 05/19/2024 7:01 PM [facility] Neutrophils Absolute 3.75 1.50 - 7.00 K/mcL LAB HEMETOLOGY METHOD 05/19/2024 7:01 PM [facility] Lymphocytes Absolute 1.97 1.00 - 5.00 K/mcL LAB HEMETOLOGY METHOD 05/19/2024 7:01 PM [facility] Monocytes Absolute 0.65 0.20 - 1.00 K/mcL LAB HEMETOLOGY METHOD 05/19/2024 7:01 PM [facility] Eosinophils Absolute 0.19 0.00 - 0.50 K/mcL LAB HEMETOLOGY METHOD 05/19/2024 7:01 PM [facility] Basophils Absolute 0.05 0.00 - 0.20 K/mcL LAB HEMETOLOGY METHOD 05/19/2024 7:01 PM [facility] Immature Granulocytes Absolute 0.02 0.00 - 0.03 K/mcL LAB HEMETOLOGY METHOD 05/19/2024 7:01 PM EST [facility] Blood Venous blood specimen / Unknown 05/19/2024 05/19/2024 6:35 PM EST Lukas COSME LAB BLOOD ORDERABLES Final Res ult [facility] [address] [place] [address], [place] [phone] * (ABNORMAL) Vitamin D 25 hydroxy (05/19/2024 12:00 AM EST) Vit D, 25-Hydroxy 16.6(L) 30.0 - 80.0 ng/mL LAB CHEMISTRY METHOD 05/19/2024 8:34 PM EST [facility] Blood Venous blood specimen / Unknown 05/19/2024 05/19/2024 6:35 PM EST Lukas COSME LAB BLOOD ORDERABLES Final Res ult Performing Organization Address [facility]/ZIP Co de Phone Number [facility] [address] [place] [address], [place] [phone] * Hemoglobin A1c (05/19/2024 12:00 AM EST) Hemoglobin A1C 6.0 <6.5 % LAB CHEMISTRY METHOD 05/19/2024 9:45 PM EST [facility] Mean Bld Glu Estim. 126 mg/dL LAB CHEMISTRY METHOD 05/19/2024 9:45 PM EST [facility] Blood Venous blood specimen / Unknown 05/19/2024 05/19/2024 6:35 PM EST Lukas [facility]ME LAB BLOOD ORDERABLES Final Res ult [facility] [address] [place] [address], [place] [phone] * Vitamin B12 (05/19/2024 12:00 AM EST) Pathologist [facility] Vitamin B-12 672 250 - 900 pcg/mL LAB CHEMISTRY METHOD 05/19/2024 8:35 PM EST [facility] Blood Venous blood specimen / Unknown 05/19/2024 05/19/2024 6:35 PM EST Lukas [facility]ME LAB BLOOD ORDERABLES Final Res ult [facility] [address] [place] [address], [place] [phone] * Thyroid stimulating hormone with reflex to free t4 and free t3 (05/19/2024 12:00 AM EST) [facility] TSH 1.38 0.40 - 4.00 mcIU/mL LAB CHEMISTRY METHOD 05/19/2024 8:35 PM EST [facility] Blood Venous blood specimen / Unknown 05/19/2024 05/19/2024 6:35 PM EST us Lukas COSME LAB BLOOD ORDERABLES Final Res ult [facility] [address] [place] [address], [place] [phone] * (ABNORMAL) Lipid panel with reflex to direct LDL (05/19/2024 12:00 AM EST) [facility] Cholesterol 247(H) 0 - 200 mg/dL LAB CHEMISTRY METHOD 05/19/2024 8:35 PM EST [facility] Triglycerides 326(H) 0 - 150 mg/dL LAB CHEMISTRY METHOD 05/19/2024 8:35 PM [facility] HDL 48 >=40 mg/dL LAB CHEMISTRY METHOD 05/19/2024 8:35 PM EST [facility] LDL Calculated 134(H) 0 - 100 mg/dL LAB CHEMISTRY METHOD 05/19/2024 8:35 PM EST [facility] VLDL Cholesterol [place] 65.2 mg/dL LAB CHEMISTRY METHOD 05/19/2024 8:35 PM [facility] Non HDL Chol. (LDL+VLDL) 199(H) <145 mg/dL LAB CHEMISTRY METHOD 05/19/2024 8:35 PM [facility] Chol/HDL Ratio 5.1(H) 0.0 - 4.4 LAB CHEMISTRY METHOD 05/19/2024 8:35 PM [facility] Blood Venous blood specimen / Unknown 05/19/2024 05/19/2024 6:35 PM EST us Lukas [facility]ME LAB BLOOD ORDERABLES Final Res ult [facility] [address] [place] [address], [place] [phone] * (ABNORMAL) Comprehensive metabolic panel (05/19/2024 12:00 AM EST) Sodium 140 133 - 145 mmol/L LAB CHEMISTRY METHOD 05/19/2024 8:35 PM [facility] Potassium 4.0 3.5 - 5.5 mmol/L LAB CHEMISTRY METHOD 05/19/2024 8:35 PM [facility] Chloride 109 96 - 110 mmol/L LAB CHEMISTRY METHOD 05/19/2024 8:35 PM [facility] CO2 28 21 - 32 mmol/L LAB CHEMISTRY METHOD 05/19/2024 8:35 PM [facility] Anion Gap 3 3 - 11 LAB CHEMISTRY METHOD 05/19/2024 8:35 PM [facility] Glucose 109(H) 70 - 100 mg/dL LAB CHEMISTRY METHOD 05/19/2024 8:35 PM [facility] BUN 19 5 - 25 mg/dL LAB CHEMISTRY METHOD 05/19/2024 8:35 PM [facility] Creatinine 0.85 0.50 - 1.10 mg/dL LAB CHEMISTRY METHOD 05/19/2024 8:35 PM [facility] eGFR 76 >=60 mL/min/1. 73m2 LAB CHEMISTRY METHOD 05/19/2024 8:35 PM [facility] Comment:Calculation based on the Chronic Kidney Disease Epidemiology Collaboration (CKD-EPI) equation refit without adjustment for race. BUN/Creatinine Ratio 22.4 LAB CHEMISTRY METHOD 05/19/2024 8:35 PM [facility] Calcium 8.9 8.5 - 10.5 mg/dL LAB CHEMISTRY METHOD 05/19/2024 8:35 PM [facility] AST (SGOT) 21 10 - 42 unit/L LAB CHEMISTRY METHOD 05/19/2024 8:35 PM [facility] ALT (SGPT) 26 10 - 60 unit/L LAB CHEMISTRY METHOD 05/19/2024 8:35 PM [facility] Alkaline Phosphatase 100 42 - 121 unit/L LAB CHEMISTRY METHOD 05/19/2024 8:35 PM [facility] Total Protein 7.2 6.0 - 8.0 g/dL LAB CHEMISTRY METHOD 05/19/2024 8:35 PM [facility] Albumin 3.7 3.2 - 5.0 g/dL LAB CHEMISTRY METHOD 05/19/2024 8:35 PM [facility] Total Bilirubin 0.5 0.0 - 1.4 mg/dL LAB CHEMISTRY METHOD 05/19/2024 8:35 PM [facility] Blood Venous blood specimen / Unknown 05/19/2024 05/19/2024 6:35 PM EST Lukas COSME LAB BLOOD ORDERABLES Final Res ult [facility] [address] [place] [address], documented in this encounter Visit Diagnoses Diagnosis Encounter for screening for diabetes mellitus Vitamin D deficiency, unspecified Essential (primary) hypertension Unspecified essential hypertension Hyperlipidemia, unspecified documented in this encounter Additional Health Concerns Infection Onset Date Last Indicated Resolved Time C. difficile Rule-Out 09/12/2024 09/12/20242024 7:06 PM EDT Gastrointestinal Rule-Out 09/12/2024 09/12/2024 7:06 PM EDT documented as of this encounter Care Teams Deputy Felony Clerk Relationship Specialty Start Date End Date Satinder Bateman MD [address] [facility] [address] [place] [address] PCP - General 10/14/23 documented as of this encounter
== END 2025-01-09 14:52 | disposition home or self-care (01) ==
PROVIDERS: PCP Internal Medicine; Referring Provider Internal Medicine; Visit Provider Psychiatry & Neurology Neurology
DX: M79.2 Neuralgia and neuritis, unspecified (principal)
CPT/HCPCS: 99214

== ENCOUNTER → 2025-01-09 14:34 | Outpatient (BNVA) | payer MEDICARE, SELFPAY | PROVIDERS: PCP Internal Medicine; Referring Provider Internal Medicine; Visit Provider Psychiatry & Neurology Neurology | DX: M79.2 Neuralgia and neuritis, unspecified (principal) | CPT/HCPCS: 99212 ==